=== PATIENT | female | born 1945 | race Caucasian/White ===

== ENCOUNTER 2024-08-02 12:19 | Emergency (ER) | payer MEDICARE, OTHER, SELFPAY ==
--- NOTE | 2024-08-02 12:22 | XRR_ITS ---
PROCEDURE INFORMATION: Exam: XR Chest Exam date and time: 08/02/2024 12:38 PM Age: 78 years old Clinical indication: Shortness of breath; Additional info: HTN TECHNIQUE: Imaging protocol: Radiologic exam of the chest. Views: 1 view. COMPARISON: No relevant prior studies available. FINDINGS: Lungs: Unremarkable. No consolidation. Pleural spaces: Unremarkable. No pleural effusion. No pneumothorax. Heart/Mediastinum: Heart size is normal. There is calcified plaque involving the aorta. Bones/joints: Unremarkable. XR/XR chest 1V portable [id number] IMPRESSION: 1. No acute cardiopulmonary findings.
[2024-08-02 12:26] VITALS: BP 190/83; PULSE 80; RESP 18; TEMP 36.4; O2SAT 99; BMI 29.0
[2024-08-02 13:26] LABS: Basophils # 0.1 10^3/uL (0.0-0.1); Basophils % 0.7 %; Eosinophils # 0.3 10^3/uL (0.0-0.8); Eosinophils % 3.8 %; Hematocrit 40.6 % (36-47); Lymphocytes # 2.4 10^3/uL (0.8-4.8); Lymphocytes % 32.9 %; Mean Corpuscular HGB Conc 32.8 g/dL (30-55); Mean Corpuscular Hemoglobin 30.2 pg (27-33); Mean Corpuscular Volume 92.3 fl (85-98); Mean Platelet Volume 11.1 fL (7.4-10.4); Monocytes # 0.6 10^3/uL (0.2-0.9); Monocytes % 8.3 %; Neutrophils % 54.2 %; Nucleated Red Blood Cells % 0 %; Platelet Count 206 10^3/cmm (157-399); Red Cell Distribution Width 12.6 % (12.1-15.1)
[2024-08-02 13:42] LABS: INR 0.82 (0.8-1.2)
[2024-08-02 13:48] LABS: Alanine Aminotransferase 17 U/L (0-33); Albumin Level 3.9 g/dL (3.5-5.2); Alkaline Phosphatase 129 U/L (35-105); Aspartate Amino Transferase 18 U/L (0-32); Blood Urea Nitrogen 16 mg/dL (8-23); Calcium 8.5 mg/dL (8.5-10.5); Carbon Dioxide 26 mmol/L (22-29); Chloride 105 mmol/L (98-107); Creatinine Clr Calc Pharmacy 41.0524; Globulin 2.6 g/dL (1.3-4.6); Glucose 105 mg/dL (65-115); Osmolality Calculated 292 mOsm/kg (285-295); Sodium 140 mmol/L (136-145); Total Bilirubin 0.3 mg/dL (0.15-1.2); Total Protein 6.5 g/dL (6.6-8.7)
== END 2024-08-02 14:04 | disposition left against medical advice (07) ==
PROVIDERS: Emergency Medicine; Emergency Provider Family Medicine; PCP Family Medicine
DX: Z53.21 Procedure and treatment not carried out due to patient leaving prior to being seen by health care provider (principal); R42 Dizziness and giddiness; R53.1 Weakness
CPT/HCPCS: 36415; 71045; 80053; 85025; 85610

== ENCOUNTER 2025-09-14 11:48 | Observation (INO) | payer MEDICARE, SELFPAY ==
[2025-09-14] VITALS (8 sets, daily range): BP systolic 93–197; BP diastolic 54–110; PULSE 67–96; RESP 15–22; TEMP 36.2–36.8; O2SAT 93–98
--- NOTE | 2025-09-14 11:47 | XR_ITS ---
WS: [id number] XR chest 1V portable [id number] REASON FOR EXAM: cva FINDINGS: Chest is unchanged compared to 08/02/2024. Mild tortuosity and ectasia of the thoracic aorta. Mild cardiomegaly. Calcified granulomatous disease bilaterally. No acute pulmonary parenchymal or pleural abnormality noted. XR/XR chest 1V portable [id number] IMPRESSION: Stable chest without acute abnormality.
--- NOTE | 2025-09-14 11:47 | CTR_ITS ---
PROCEDURE INFORMATION: Exam: CT Head Without Contrast Exam date and time: 09/14/2025 11:48 AM Age: 79 years old Clinical indication: Stroke-like symptoms; Other: Stroke -like symptons; Additional info: Symptoms of acute stroke TECHNIQUE: Imaging protocol: Computed tomography of the head without contrast. Radiation optimization: All CT scans at this facility use at least one of these dose optimization techniques: automated exposure control; mA and/or kV adjustment per patient size (includes targeted exams where dose is matched to clinical indication); or iterative reconstruction. Other technique: STROKE PROTOCOL was implemented. COMPARISON: No relevant prior studies available. RADIATION DOSE METRICS: Total DLP (mGy-cm): 1038.98 FINDINGS: Brain: No acute hemorrhage, edema, or mass effect. Areas of periventricular and subcortical hypoattenuation likely reflecting chronic microvascular ischemic changes given the patient's age. Age-indeterminate lacunar infarct in the right subinsular white matter. Chronic appearing left basal ganglia lacunar infarct. Cerebral ventricles: No hydrocephalus. Mild ex vacuo dilatation of the left lateral ventricle. Paranasal sinuses: Few opacified ethmoid air cells. Mild sphenoid sinus mucosal thickening. Mastoid air cells: The tympanomastoid cavities are clear. Bones: Unremarkable. No acute fracture. Soft tissues: Unremarkable. CT/CT head thrombolytic [id number] IMPRESSION: 1. No acute hemorrhage, edema, or mass effect. Extensive chronic microvascular ischemic changes. 2. No obvious transcortical infarct. 3. Age indeterminate lacunar infarct in the right subinsular white matter. 4. Chronic left basal ganglia lacunar infarct. ASSESSMENT: ASPECTS ([place] Stroke Program Early CT Score) is 10.
--- NOTE | 2025-09-14 12:03 | ED_ITS ---
HPI - Neuro Symptoms/Deficit 2 General: Chief Complaint: Neuro Symptoms/Deficit Stated Complaint: disoriented/slurred speech - resolved before ems Time Seen by Provider: 09/14/25 11:48 Source: patient and EMS Mode of arrival: EMS Limitations: no limitations History of Present Illness: 79-year-old female states that she went to bed last night 8 PM states she woke up she has been having some dizziness with some unsteady gait she had a episode here where she is having slurred speech word find difficulty that is since resolved. She denies any weakness states she just feels unsteady when she tries to ambulate. Denies any headache denies any fevers Related Data Home Medications ?Medication ?Instructions ?Recorded ?Confirmed albuterol sulfate 90 mcg/actuation 2 puff inhalation Q 6H PRN 09/14/25 09/14/25 aerosol inhaler Shortness Of Breath atorvastatin 80 mg tablet 80 mg PO DAILY 09/14/2509/04 clopidogrel 75 mg tablet 75 mg PO DAILY 09/14/2509/04 losartan 100 mg tablet 100 mg PO DAILY 09/14/2508/29 metoprolol succinate 100 mg 100 mg PO QAM 09/14/2508/29 tablet,extended release 24 hr pantoprazole 40 mg tablet,delayed 40 mg PO DAILY 09/1409/14/25 release Allergies Allergy/AdvReac Type Severity Reaction Status Date / Time lisinopril Allergy ADR-Cough Verified 08/02/24 12:28 Review of Systems 2 Neuro: Reports: dizziness NIH stroke score 2 NIHSS: Level Of Consciousness - 1a: 0 Level Of Consciousness Questions - 1b: Both Correct Level Of Consciousness Commands - 1c: Both Correct Best Gaze - 2: Normal Visual Pryor - 3: No Visual Loss Facial Palsy - 4: N ormal Motor Arm Right - 5: No Drift Motor Arm Left - 5: No Drift Motor Leg Right - 6: No Drift Motor Leg Left - 6: No Drift Limb Ataxia - 7: A bsent Sensory - 8: Normal Best Language - 9: No Aphasia Dysarthia - 10: Normal Extinction And Inattention - 11: 0 Score: Total Score: 0 Physical Exam 2 Const: COMMON NORMALS: patient oriented x3 HENMT: COMMON NORMALS: normocephalic and atraumatic HEAD & SCALP: n ormocephalic and atraumatic Eye: COMMON NORMALS: Equal, round and reactive pupils present and EOMs intact bilaterally PUPIL: Yes Equal, round and reactive pupils present Neck/C-Spine: COMMON NORMALS: full ROM and supple Chest: COMMONS NORMALS: normal inspection of the chest Resp: COMMON NORMALS: normal respiratory effort, No retractions, No use of accessory muscles and clear to auscultation bilaterally AUSCULTATION: clear to auscultation bilaterally Cardio: COMMON NORMALS: regular rate, regular rhythm and No murmurs present (Cardio) RATE: regular rate RHYTHM: regular rhythm Extremity: COMMON NORMALS: normal to inspection and full ROM Neuro: COMMON NORMALS: patient oriented x3 and moves all extremities C RANIAL NERVES: Yes CN normal except as noted SPEECH: speech normal MOTOR EXAM: 5/5 motor strength present throughout OTHER: ataxic gait Psych: COMMON NORMALS: mental status grossly normal, Normal thought process present and cooperative THOUGHT PROCESS: Normal thought process present Skin: COMMON NORMALS: no rashes or lesions noted and no wounds GENERAL SKIN EXAM: no rashes or lesions noted Course 2 Vital Signs: Vital signs: Vital Signs Temperature 98.2 F 09/14/25 12:03 Pulse Rate 76 09/14/25 12:52 Respiratory Rate 22 H 09/14/25 12:52 Blood Pressure 192/89 09/14/25 12:52 Pulse Oximetry 96 09/14/25 12:52 Oxygen Delivery Me thod Room Air 09/14/25 12:03 MDM - Neuro Symptoms/Deficit Medical Decision Making 79-year-old female presents here with vertigo along with slurred speech she woke up with symptoms last normal 8 PM last night since resolved. Differential includes TIA, CVA, subarachnoid hemorrhage. CT here shows no signs of hemorrhage patient is not a lytic candidate as her last known normal was last night and her symptoms have since resolved is likely a TIA did interpret her chest x-ray showed no acute abnormality spoke to Dr. Lala will admit for observation this time EKG interpreted by me at 1204 normal sinus rhythm heart rate [address] elevation QRS 94 QTc 399 Medical Records I reviewed the patient's medical records. Lab Data I reviewed the patient's lab results. 09/14/25 12:02 09/14/25 12:02 Radiology Impressions Chest X-Ray 09/14/25 11:47 IMPRESSION: Stable chest without acute abnormality. Head CT 09/14/25 11:47 IMPRESSION: 1. No acute hemorrhage, edema, or mass effect. Extensive chronic microvascular ischemic changes. 2. No obvious transcortical infarct. 3. Age indeterminate lacunar infarct in the right subinsular white matter. 4. Chronic left basal ganglia lacunar infarct. ASSESSMENT: ASPECTS ([place] Stroke Program Early CT Score) is 10. ADDENDUM: 09/14/25 1228 COMMENT: THIS REPORT CONTAINS FINDINGS THAT MAY BE CRITICAL TO PATIENT CARE. The exam findings were verbally communicated by me to LEIF SAMAYOA via telephone conference at 12:25 PM WORKPLACE RELATIONS ADVISER on 09/14/2025. The findings were acknowledged and understood. MRI may be obtained for further evaluation if no contraindication. Laboratory Results WBC 6.58 10^3/uL (3.29-11.43) 09/14/25 12:02 RBC 4.66 10^6/uL (3.85-5.65) 09/14/25 12:02 Hgb 14.00 g/dL (11.27-16.99) 09/14/25 12:02 Hct 42.1 % (36-47) 09/14/25 12:02 MCV 90.3 fl (85-98) 09/14/25 12:02 MCH 30.0 pg (27-33) 09/14/25 12:02 MCHC 33.3 g/dL (30-55) 09/14/25 12:02 RDW 12.7 % (12.1-15.1) 09/14/25 12:02 Plt Count 227 10^3/cmm (157-399) 09/14/25 12:02 MPV 10.6 fL (7.4-10.4) H 09/14/25 12:02 Neut % (Auto) 49.4 % 09/14/25 12:02 Lymph % (Auto) 36.0 % 09/14/25 12:02 [place] % (Auto) 8.4 % 09/14/25 12:02 Eos % (Auto) 5.2 % 09/14/25 12:02 Baso % (Auto) 0.8 % 09/14/25 12:02 Neut # (Auto) 3.26 10^3/uL (1.8-7.7) 09/14/25 12:02 Lymph # (Auto) 2.4 10^3/uL (0.8-4.8) 09/14/25 12:02 [place] # (Auto) 0.6 10^3/uL (0.2-0.9) 09/14/25 12:02 Eos # (Auto) 0.3 10^3/uL (0.0-0.8) 09/14/25 12:02 Baso # (Auto) 0.1 10^3/uL (0.0-0.1) 09/14/25 12:02 Nucleated RBC % (auto) 0 % 09/14/25 12:02 Nucleated RBCs # 0.0 /100WBC 09/14/25 12:02 PT 12.50 SECONDS (12.1-14.9) 09/14/25 12:02 INR 0.87 (0.8-1.2) 09/14/25 12:02 APTT 23.9 SECONDS (23.9-36.7) 09/14/25 12:02 Sodium 142 mmol/L (136-145) 09/14/25 12:02 Potassium 4.2 mmol/L (3.5-5.1) 09/14/25 12:02 Chloride 105 mmol/L (98-107) 09/14/25 12:02 Carbon Dioxide 26 mmol/L (22-29) 09/14/25 12:02 Anion Gap 15.2 (5-19) 09/14/25 12:02 BUN 16 mg/dL (8-23) 09/14/25 12:02 Creatinine 1.1 mg/dL (0.5-0.9) H 09/14/25 12:02 GFR Calculation Not Reportable 09/14/25 12:02 Glucose 120 mg/dL (65-115) H 09/14/25 12:02 POC Glucose 126 mg/dL (70-110) H 09/14/25 12:00 Calculated Osmolality 296 mOsm/kg (285-295) H 09/14/25 12:02 Calcium 9.3 mg/dL (8.5-10.5) 09/14/25 12:02 Total Bilirubin 0.4 mg/dL (0.15-1.2) 09/14/25 12:02 AST 19 U/L (0-32) 09/14/25 12:02 ALT 17 U/L (0-33) 09/14/25 12:02 Alkaline Phosphatase 101 U/L (35-105) 09/14/25 12:02 Total Protein 6.9 g/dL (6.6-8.7) 09/14/25 12:02 Albumin 4.3 g/dL (3.5-5.2) 09/14/25 12:02 Globulin 2.6 g/dL (1.3-4.6) 09/14/25 12:02 Urine Color Yellow (Yellow) 09/14/25 12:16 Urine Appearance Clear (CLEAR) 09/14/25 12:16 Urine pH 5.5 (5-7) 09/14/25 12:16 Ur Specific [place] 1.005 (1.005-1.030) 09/14/25 12:16 Urine Protein Negative (Negative) 09/14/25 12:16 Urine Glucose (UA) Negative (Normal) 09/14/25 12:16 Urine Ketones Negative (Negative) 09/14/25 12:16 Urine Blood Negative (Negative) 09/14/25 12:16 Urine Nitrate Negative (Negative) 09/14/25 12:16 Urine Bilirubin Negative (Negative) 09/14/25 12:16 Urine Urobilinogen 0.2 mg/dL (Negative) 09/14/25 12:16 Ur Leukocyte Esterase Negative (Negative) 09/14/25 12:16 Urine RBC 0-2 /hpf (0-2) 09/14/25 12:16 Urine WBC 0-5 /hpf (0-5) 09/14/25 12:16 Ur Squamous Epith Cells 0-5 /hpf (0-5) 09/14/25 12:16 Amorphous Sediment Not Reportable 09/14/25 12:16 Urine Bacteria None seen /hpf (NONE) 09/14/25 12:16 Hyaline Casts 0-4 /lpf H 09/14/25 12:16 Urine Opiates Screen Negative ng/mL (Negative) 09/14/25 12:16 Ur Barbiturates Screen Negative ng/mL (Negative) 09/14/25 12:16 Ur Phencyclidine Scrn Negative ng/mL (Negative) 09/14/25 12:16 Ur Amphetamines Screen Negative ng/mL (Negative) 09/14/25 12:16 U Benzodiazepines Scrn Negative ng/mL (Negative) 09/14/25 12:16 Urine Cocaine Screen Negative ng/mL (Negative) 09/14/25 12:16 U Marijuana (THC) Screen Negative ng/mL (Negative) 09/14/25 12:16 All radiology interpretation(s) finalized by discharge Discharge Plan Discharge Condition: Stable Prescriptions: No Action atorvastatin 80 mg tablet 80 mg PO DAILY metoprolol succinate 100 mg tablet extended release 24 hr 100 mg PO QAM clopidogrel 75 mg tablet 75 mg PO DAILY pantoprazole 40 mg tablet,delayed release (DR/EC) 40 mg PO DAILY albuterol sulfate 90 mcg/actuation HFA aerosol inhaler 2 puff INHALATION Q6H PRN (Reason: Shortness Of Breath) losartan 100 mg tablet 100 mg PO DAILY Referrals: Spencer Pascal MD [Staff Physician, Family Practice] Print Language: Divehi Coding Level of Care Code ED Pull Over Machine Operator for Rodriguez Valiente
--- NOTE | 2025-09-14 12:04 | ECG_ITS ---
[facility] Test Date: 2025-09-14 Pat Name: Susan Machado Department: Room: Gender: Female Air Dispatcher: : 1945 Requested By: Desirae Cueto Order Number: [id number] Hui MD: Trudy Cobos M.D. Measurements Intervals [place] Rate: 75 P: 55 IA: 194 QRS: 58 QRSD: 94 T: 69 QT: 369 QTc: 415 Interpretive Statements SINUS RHYTHM NONSPECIFIC ST & T-WAVE ABNORMALITY No previous ECG available for comparison Electronically Signed On 09-14-2025 17:17:24 VIDEO SYSTEM REPAIRER by Trudy Cobos M.D. [email or web address]
[2025-09-14 12:08] LABS: Hematocrit 42.1 % (36-47); Hemoglobin 14.00 g/dL (11.27-16.99); Mean Corpuscular HGB Conc 33.3 g/dL (30-55); Mean Corpuscular Hemoglobin 30.0 pg (27-33); Mean Corpuscular Volume 90.3 fl (85-98); Nucleated Red Blood Cells % 0 %; Platelet Count 227 10^3/cmm (157-399); Red Blood Count 4.66 10^6/uL (3.85-5.65); White Blood Count 6.58 10^3/uL (3.29-11.43)
[2025-09-14 12:25] LABS: INR 0.87 (0.8-1.2); Prothrombin Time 12.50 SECONDS (12.1-14.9)
[2025-09-14 12:26] LABS: Partial Thromboplastin Time 23.9 SECONDS (23.9-36.7)
[2025-09-14 12:32] LABS: Alanine Aminotransferase 17 U/L (0-33); Albumin Level 4.3 g/dL (3.5-5.2); Alkaline Phosphatase 101 U/L (35-105); Anion Gap 15.2 (5-19); Aspartate Amino Transferase 19 U/L (0-32); Blood Urea Nitrogen 16 mg/dL (8-23); Calcium 9.3 mg/dL (8.5-10.5); Carbon Dioxide 26 mmol/L (22-29); Chloride 105 mmol/L (98-107); Globulin 2.6 g/dL (1.3-4.6); Glucose 120 mg/dL (65-115); Osmolality Calculated 296 mOsm/kg (285-295); Potassium 4.2 mmol/L (3.5-5.1); Sodium 142 mmol/L (136-145); Total Protein 6.9 g/dL (6.6-8.7)
[2025-09-14 12:38] LABS: Glucose Urine UA Negative (Normal); Nitrate Urine Negative (Negative); Specific Gravity, Urine 1.005 (1.005-1.030)
[2025-09-14 12:43] LABS: Add Urine Microscopic? YES
[2025-09-14 12:45] LABS: PCP Screen Urine Negative (Negative)
--- NOTE | 2025-09-14 14:09 | CTR_ITS ---
PROCEDURE INFORMATION: Exam: CTA Head With Contrast, Arteriography Exam date and time: 09/14/2025 2:17 PM Age: 79 years old Clinical indication: Stroke-like symptoms; Other: TIA, CT angiogram cervical and intracranial vessels TECHNIQUE: Imaging protocol: Computed tomographic angiography of the head with contrast. Exam focused on the arteries. 3D rendering (Not supervised by radiologist): MIP and/or 3D reconstructed images were created by the technologist. Radiation optimization: All CT scans at this facility use at least one of these dose optimization techniques: automated exposure control; mA and/or kV adjustment per patient size (includes targeted exams where dose is matched to clinical indication); or iterative reconstruction. Contrast material: [id number]; Contrast volume: 100 ml; Contrast route: INTRAVENOUS (IV); COMPARISON: CT head thrombolytic [id number] 09/14/2025 11:48 AM RADIATION DOSE METRICS: Total DLP (mGy-cm): 427.55 FINDINGS: ANTERIOR CIRCULATION: Right internal carotid artery: Calcified atheroma of the right cavernous ICA with mild stenosis. Right middle cerebral artery: No occlusion or significant stenosis. No aneurysm. Right anterior cerebral artery: No occlusion or significant stenosis. No aneurysm. Left internal carotid artery: Mild stenosis of the left cavernous ICA. Left middle cerebral artery: No occlusion or significant stenosis. No aneurysm. Left anterior cerebral artery: No occlusion or significant stenosis. No aneurysm. POSTERIOR CIRCULATION: Right vertebral artery: No occlusion or significant stenosis. No aneurysm. Left vertebral artery: No occlusion or significant stenosis. No aneurysm. Basilar artery: No occlusion or significant stenosis. No aneurysm. Right posterior cerebral artery: Moderate stenosis of the right SENIOR JAVA DATA ARCHITECT. Left posterior cerebral artery: Mild stenosis of the left SENIOR JAVA DATA ARCHITECT. Brain: There are bilateral periventricular white matter and centrum semiovale hypodensities, consistent with chronic ischemic small vessel disease. Age related diffuse parenchymal volume loss. Old infarct in the left basal ganglia. No recent infarct, intracranial bleed or mass effect. Cerebral ventricles: Ex vacuo dilatation of the ventricles. Bones/joints: Unremarkable. No acute fracture. Soft tissues: Unremarkable. PROCEDURE INFORMATION: Exam: CTA Neck With Contrast Exam date and time: 09/14/2025 2:17 PM Age: 79 years old Clinical indication: Stroke-like symptoms; Other: TIA, CT angiogram cervical and intracranial vessels TECHNIQUE: Imaging protocol: Computed tomographic angiography of the neck with contrast. Exam focused on the cervical segments of the vasculature. 3D rendering (Not supervised by radiologist): MIP and/or 3D reconstructed images were created by the technologist. Radiation optimization: All CT scans at this facility use at least one of these dose optimization techniques: automated exposure control; mA and/or kV adjustment per patient size (includes targeted exams where dose is matched to clinical indication); or iterative reconstruction. Contrast material: [id number]; Contrast volume: 100 ml; Contrast route: INTRAVENOUS (IV); COMPARISON: CT head thrombolytic [id number] 09/14/2025 11:48 AM RADIATION DOSE METRICS: Total DLP (mGy-cm): 427.55 FINDINGS: Right common carotid artery: Calcified atheroma of the right common carotid artery with mild stenosis. Right internal carotid artery: Work calcified atheroma of the right proximal ICA with moderate to severe stenosis. Right external carotid artery: No occlusion or stenosis of the origin. Left common carotid artery: Calcified atheroma of the left common carotid artery with mild stenosis. Left internal carotid artery: Calcified atheroma of the left proximal ICA with moderate to severe stenosis. Left external carotid artery: No occlusion or stenosis of the origin. Right vertebral artery: Hypoplastic right vertebral artery. Left vertebral artery: Calcified atheromas at the origin of the left vertebral artery with mild stenosis. Thyroid: Heterogeneous thyroid with multiple thyroid nodules, some of which with calcifications measuring up to 2 cm in the left thyroid lobe. Soft tissues: Normal. No significant soft tissue swelling. Bones/joints: The cervical spine demonstrates moderate degenerative changes at multiple levels. Mild anterolisthesis of C6 over C7. There is a curvature of the cervical spine convex to the right. CT/CT angio headneck* [id number] IMPRESSION: 1. No large territorial infarct or intracranial bleed. 2. No large vessel occlusion. IMPRESSION: Moderate to severe stenosis of bilateral proximal ICAs. COMMENTS: Consistent with the [place] [employer]'s Incidental Findings Committee white paper (J Am Saji Radiol 2015): In patients aged 35 years and older with an incidental thyroid nodule equal to or greater than 1.[address], MRI or extrathyroidal US, further evaluation with dedicated thyroid US is recommended for patients with normal life expectancy and without comorbidities. For smaller nodules without suspicious features, no further evaluation or follow up is recommended. REFERENCES: NASCET CRITERIA. The degree of stenosis in the cervical segment of the internal carotid artery is based on NASCET criteria. Normal is no stenosis. Mild is less than 50% stenosis. Moderate is 50-69% stenosis. Severe is 70% to 99% stenosis. Total occlusion is no detectable patent lumen.
--- NOTE | 2025-09-14 14:10 | PM.HP ---
Providers/Chief Complaint Admitting Physician: Jorge Luis Funes MD Primary Care Provider: Maricel Leonardo DO Chief Complaint: disoriented - slurred speech History of Present Illness Susan Machado is a 79 year old female with past medical history of hypertension, CAD post PCI, hyperlipidemia presents to the ER today because of slurred speech, dizziness which started at 10:50 AM and lasted for around 15 minutes. Symptoms resolved by itself. Patient denies having any similar symptoms in the past. Denies any changes in the medications. States she usually checks her blood pressures at home and usually numbers are in 120s systolics. Review of Systems General: Reports: 10 or more systems reviewed and unremarkable except in HPI and below Const: Denies: fever(s), chills, body aches, change in appetite, change in weight, malaise, night sweats, diaphoresis, change in sleep pattern, daytime sleepiness or snoring Eyes: Denies: change in vision, blurry vision, photophobia, eye discomfort or eye discharge ENMT: Denies: throat pain, enlarged tonsils, hoarseness, mouth pain, oral sores, dry mouth, tinnitus, nasal congestion or post nasal drip Card: Denies: chest pain, palpitations, irregular heart rhythm, edema, swelling of feet/ankles, lightheadedness, syncope, pre-syncope, dyspnea on exertion, orthopnea, leg pain with exertion or acrocyanosis Resp: Denies: dyspnea, productive cough, non-productive cough, wheezing, stridor, pain on inspiration, change in phlegm color, hemoptysis or chest congestion GI: Denies: abdominal pain, nausea, vomiting, hematemesis, coffee ground emesis, dysphagia, heartburn, diarrhea, constipation, bloating, GI cramping, change in bowel habits, pain on defecation, hematochezia or melena : Denies: flank pain, dysuria, urinary frequency, urinary urgency, urinary hesitancy, nocturia or hematuria Musc: Denies: neck pain, back pain, extremity pain, joint pain, joint swelling, joint redness, joint stiffness or limited range of motion Neuro: Denies: headache(s), numbness in extremities, weakness in extremities, sensory changes, lack of coordination, difficulty walking, frequent falls, dizziness, vertigo, confusion, Slurred speech present, difficulty communicating thoughts or seizure-like activity Psych: Denies: anxiety, depression, mood swings, panic attacks, hopelessness or irritability Endo: Denies: polyuria, polydipsia, tired all the time, cold intolerance, excessive sweating, flushing or heat intolerance Justin/Lymph: Denies: easy bruising or easy bleeding All/Imm: Denies: tongue swelling, facial swelling or acute wheezing Medications/Allergies Home Medications ?Medication ?Instructions ?Recorded ?Confirmed ?Last Taken ?Type albuterol sulfate 90 mcg/actuation 2 puff inhalation Q6H PRN 09/14/25 09/14/25 Unknown History aerosol inhaler Shortness Of Breath atorvastatin 80 mg tablet 80 mg PO DAILY 09/14/25 09/14/25 09/13/25 History clopidogrel 75 mg tablet 75 mg PO DAILY 09/14/25 09/14/25 09/13/25 History losartan 100 mg tablet 100 mg PO DAILY 09/14/25 09/14/25 09/14/25 History metoprolol succinate 100 mg 100 mg PO QAM 09/14/25 09/14/25 09/13/25 History tablet,extended release 24 hr pantoprazole 40 mg tablet,delayed 40 mg PO DAILY 09/14/25 09/14/25 09/13/25 History release Allergies Allergy/AdvReac Type Severity Reaction Status Date / Time lisinopril Allergy ADR-Cough Verified 08/02/24 12:28 PFSH Acute PFSH: Medical History (Updated 09/14/25 @ 15:27 by Jorge Luis Funes MD) Staphylococcus aureus bacteremia CKD (chronic kidney disease) Hyperlipidemia Hypertension CAD (coronary artery disease) Surgical History (Updated 09/14/25 @ 15:27 by Jorge Luis Funes MD) Status post right knee replacement Previous back surgery Hx of cholecystectomy Social History (Updated 09/14/25 @ 16:19 by Jorge Luis Funes MD) Smoking and tobacco/nicotine status: current every day tobacco/nicotine user cigarettes Packs smoked per day: 0.5 Alcohol intake: never Substance/Drug Use: never Caregiver/support person: Yes Lives independently: Yes Household members: family Vitals/I&O/Wt Last Vital Signs Temp 98.2 F 09/14/25 12:03 Pulse 67 09/14/25 14:02 Resp 15 09/14/25 14:02 BP 172/83 09/14/25 14:02 Pulse Ox 95 09/14/25 14:02 O2 Del Method Room Air 09/14/25 14:02 09/13/25 09/14/25 09/14/25 22:59 06:59 14:59 Intake Total 1000 / 1000 Balance 1000 / 1000 Weight last 48 hrs Weight 64.864 kg Physical Exam Narrative: General: No acute distress, AO x3 HEENT: PERRLA, pupils bilaterally equal and reactive Chest: Normal vesicular breath sounds, no added sounds, equal good air entry bilaterally CVS: S1-S2 regular, no murmurs, no tachycardia, no gallops, no rubs Abdomen: Soft, nontender, no organomegaly, bowel sounds present Neuro: No focal deficits, no facial deformity, AO x3, power 5/5 in all limbs Data 09/14/25 12:02 09/14/25 12:02 A&P Assessment and plan 1. TIA (transient ischemic attack): 2. Bilateral carotid artery stenosis: 3. Hyperlipidemia: 4. Hypertension: 5. CAD (coronary artery disease): Plan: 79-year-old lady admitted with TIA. History of CAD and hypertension along with hyperlipidemia. TIA: Neurochecks every 4 hour. Continue with home dose of Plavix and statin. Add aspirin 81 mg oral daily. Check CTA, echocardiogram, TSH, lipid panel, A1c. Hypertension: Goal blood pressure less than 140/90 mmHg. Continue with home dose of losartan and metoprolol for now. Uptitrate as for goal blood pressure. CKD: Baseline creatinine around 1-1.1. Currently creatinine at baseline. Continue to monitor daily for now. CODE STATUS: Discussed detail with the patient. Daughter Judith will be DPOA. Glucoside resuscitation. Okay with chest compressions but no mechanical ventilation. Lovenox for DVT prophylaxis Protonix for PUD prophylaxis PDMP PDMP Reviewed: Not Reviewed Attestations Medical Necessity Statement*: Under observation for management of TIA. Diagnoses TIA (transient ischemic attack) G45.9 Bilateral carotid artery stenosis I65.23 Hyperlipidemia E78.5 Hypertension I10 CAD (coronary artery disease) I25.10
[2025-09-14] MEDS: iohexol 350 mg/mL 500 mL Btl (per mL) IV (14:21)
--- NOTE | 2025-09-14 14:31 | USCV_ITS ---
Susan Machado Age: 79 Gender: F : 1945 Exam Date: 09/14/2025 19:43 Ordering Phys: Jorge Luis Funes MD Technologist: RASTA [place]am Location[place] [facility] [place]: acute stroke, History of HTN, CAD s/p PCI BP: 197 / 96 HR: 66 Rhythm: Sinus Technical Quality: Adequate MEASUREMENTS (Male / Female) Normal Values 2D ECHO LV Diastolic Diameter PLAX 4.3 cm 4.2 - 5.9 / 3.9 - 5.3 cm IVS Diastolic Thickness 1.2 cm 0.6 - 1.0 / 0.6 - 0.9 cm IVS Systolic Thickness 1.8 cm LVPW Diastolic Thickness 1.1 cm 0.6 - 1.0 / 0.6 - 0.9 cm LVPW Systolic Thickness 1.5 cm LVOT Diameter 1.6 cm LV Ejection Fraction 2D Teich 50.0 % LV Ejection Fraction MOD 4C 50.8 % LV Ejection Fraction MOD 2C 53.5 % LV Ejection Fraction 2C AL 54.0 % LA Diameter 3.5 cm Aorta at Sinotubular Diameter 2.3 cm IVC Diameter 1.1 cm M-MODE LA Ao Ratio MM 1.6 AV Cusp Separation MM 1.6 cm DOPPLER AV Peak Velocity 119.0 cm/s LVOT Peak Velocity 79.0 cm/s AV Area Cont Eq vti 1.5 cm squared AV Area Cont Eq pk 1.4 cm squared MV Peak Velocity 117.0 cm/s MV Area PHT 2.6 cm squared Mitral E to A Ratio 0.7 TV Peak E Velocity 46.0 cm/s PV Peak Velocity 73.0 cm/s FINDINGS Left Ventricle Normal left ventricular size, systolic function and wall thickness, with no regional wall motion abnormalities. Left ventricular ejection fraction is estimated at 60 %. Grade I/IV diastolic dysfunction (abnormal relaxation filling pattern), normal to mildly elevated filling pressures. Right Ventricle Normal right ventricular size and systolic function. Right Atrium Normal right atrial size. Left Atrium Moderately increased left atrial size. IA Septum Normal appearance of the interatrial septum. Mitral Valve Severely thickened mitral valve. Moderate mitral annular calcification. No mitral valve stenosis. Mild mitral valve regurgitation. Aortic Valve Moderate aortic valve calcification. No aortic valve stenosis. Trace aortic valve regurgitation. Tricuspid Valve Mild tricuspid valve regurgitation. Pulmonic Valve Mild pulmonary valve regurgitation. Pericardium No pericardial effusion. Aorta Normal diameter of the aortic root and ascending thoracic aorta. IVC Normal IVC diameter. CONCLUSIONS Normal left ventricular size, systolic function and wall thickness, with no regional wall motion abnormalities. Left ventricular ejection fraction is estimated at 60 %. Grade I/IV diastolic dysfunction (abnormal relaxation filling pattern), normal to mildly elevated filling pressures. Severely thickened mitral valve. Moderate mitral annular calcification. No mitral valve stenosis. Mild mitral valve regurgitation. Moderate aortic valve calcification. No aortic valve stenosis. Trace aortic valve regurgitation. Mild tricuspid valve regurgitation. There is no pericardial effusion. Right atrial pressure is around 5 mm of mercury. Clara Finney MD (Electronically Signed) Final Date: 17 September 2025 15:27 S
[2025-09-14 14:39] LABS: Alcohol Level < 10 mg/dL (0-10)
[2025-09-14 15:33] LABS: Thyroid Stimulating Hormone 2.05 uIU/mL (0.27-4.20); Vitamin B12 398 pg/mL (232-1245)
[2025-09-15] VITALS: BP 93/54; PULSE 67; RESP 16; TEMP 36.2; O2SAT 96
[2025-09-15 03:41] VITALS: TEMP 36.2
[2025-09-15 04:00] VITALS: BP 104/62; PULSE 61; RESP 16; TEMP 36.7; O2SAT 91
[2025-09-15 05:16] LABS: Hematocrit 40.2 % (36-47); Hemoglobin 13.10 g/dL (11.27-16.99); Mean Corpuscular HGB Conc 32.6 g/dL (30-55); Mean Corpuscular Hemoglobin 30.1 pg (27-33); Mean Corpuscular Volume 92.4 fl (85-98); Nucleated Red Blood Cells % 0 %; Platelet Count 202 10^3/cmm (157-399); Red Blood Count 4.35 10^6/uL (3.85-5.65); White Blood Count 6.51 10^3/uL (3.29-11.43)
[2025-09-15 05:43] LABS: Alanine Aminotransferase 15 U/L (0-33); Albumin Level 3.8 g/dL (3.5-5.2); Alkaline Phosphatase 90 U/L (35-105); Anion Gap 14.1 (5-19); Aspartate Amino Transferase 16 U/L (0-32); Blood Urea Nitrogen 16 mg/dL (8-23); Calcium 9.3 mg/dL (8.5-10.5); Carbon Dioxide 25 mmol/L (22-29); Chloride 107 mmol/L (98-107); Globulin 1.9 g/dL (1.3-4.6); Glucose 98 mg/dL (65-115); Magnesium 2.3 mg/dL (1.7-2.3); Osmolality Calculated 295 mOsm/kg (285-295); Potassium 4.1 mmol/L (3.5-5.1); Sodium 142 mmol/L (136-145); Total Protein 5.7 g/dL (6.6-8.7)
[2025-09-15 05:45] LABS: Cholesterol 232 mg/dL (0-200); HDL Cholesterol 49 mg/dL (60-100); Triglycerides 130 mg/dL (0-150)
[2025-09-15] MEDS: LOSARTAN 100 MG TABLET PO (05:56)
[2025-09-15] MEDS: metoprolol succinate ER (24 HR) 100 mg Tablet PO (05:56)
[2025-09-15 06:00] VITALS: BP 104/62; PULSE 61; RESP 16; TEMP 36.7
[2025-09-15 06:00] LABS: Estmated Average Glucose 111; Hemoglobin A1C 5.5 % (4.0-6.0)
[2025-09-15 07:23] VITALS: BP 163/78; PULSE 60; RESP 16; TEMP 36.6; O2SAT 96
--- NOTE | 2025-09-15 08:29 | P.DS_ITS ---
Discharge Providers Date of Admission: 09/14/25 13:57 Date of Discharge: September 15, 2025 Attending Provider at Admission: Jorge Luis Funes MD Attending Provider at Discharge: Jorge Luis Funes MD Primary Care Provider: Maricel Leonardo DO Diagnoses at Discharge Discharge Diagnosis 1. TIA (transient ischemic attack): 2. Bilateral carotid artery stenosis: 3. Hyperlipidemia: 4. Hypertension: 5. CAD (coronary artery disease): Reason for Visit Reason for Visit: disoriented - slurred speech Hospital Course Hospital Course Susan Machado is a 79 year old female with past medical history of hypertension, CAD post PCI, hyperlipidemia presents to the ER today because of slurred speech, dizziness which started at 10:50 AM and lasted for around 15 minutes. Symptoms resolved by itself. Patient denies having any similar symptoms in the past. Denies any changes in the medications. States she usually checks her blood pressures at home and usually numbers are in 120s systolics. Patient was admitted for TIA-like symptoms. She did not have any further episodes of weakness or TIA during hospitalization. Her blood pressures remain slightly elevated. CTA was done which is concerning for bilateral moderate to severe carotid artery stenosis. She has been discharged in neurology continue the next 2 weeks. She should also follow-up with vascular team patient at the earliest patient was counseled in detail about need for smoking cessation given concern history of CAD PAD and TIA. She is to take her home dose of amlodipine and losartan as before. She is to check her blood pressure daily at home maintain blood pressure diary. She is advised to take an extra dose of amlodipine 5 mg as needed for systolic of more than 160 mmHg. Physical Exam Narrative: General: No acute distress, AO x3 HEENT: PERRLA, pupils bilaterally equal and reactive Chest: Normal vesicular breath sounds, no added sounds, equal good air entry bilaterally CVS: S1-S2 regular, no murmurs, no tachycardia, no gallops, no rubs Abdomen: Soft, nontender, no organomegaly, bowel sounds present Neuro: No focal deficits, no facial deformity, AO x3, power 5/5 in all limbs Discharge Data Studies Completed and Pending Completed Studies During Hospitalization Category Date Time Status CT angio headneck* [id number] Stat Cat Scan 09/14/25 14:[address] head thrombolytic [id number] Stat Cat Scan 09/14/25 11:47 Completed XR chest 1V portable [id number] Stat Exams 09/14/25 11:47 Completed Pending at discharge Category Date Time Status Complete Blood Count w/Auto AM LABS Lab 09/16/25 04:00 Ordered Complete Blood Count w/Auto AM LABS Lab 09/17/25 04:00 Ordered Comprehensive Metabolic Panel AM LABS Lab 09/16/25 04:00 Ordered Comprehensive Metabolic Panel AM LABS Lab 09/17/25 04:00 Ordered Magnesium AM LABS Lab 09/16/25 04:00 Ordered Magnesium AM LABS Lab 09/17/25 04:00 Ordered Phosphorus AM LABS Lab 09/16/25 04:00 Ordered Phosphorus AM LABS Lab 09/17/25 04:00 Ordered CV. echo complete* [id number] Routine Ultrasound 09/14/25 14:31 Taken Radiology Impressions Chest X-Ray 09/14/25 11:47 IMPRESSION: Stable chest without acute abnormality. Head CT 09/14/25 11:47 IMPRESSION: 1. No acute hemorrhage, edema, or mass effect. Extensive chronic microvascular ischemic changes. 2. No obvious transcortical infarct. 3. Age indeterminate lacunar infarct in the right subinsular white matter. 4. Chronic left basal ganglia lacunar infarct. ASSESSMENT: ASPECTS ([place] Stroke Program Early CT Score) is 10. ADDENDUM: 09/14/25 1228 COMMENT: THIS REPORT CONTAINS FINDINGS THAT MAY BE CRITICAL TO PATIENT CARE. The exam findings were verbally communicated by me to LEIF SAMAYOA via telephone conference at 12:25 PM SR TECHNICAL SALES CONSULTANT on 09/14/2025. The findings were acknowledged and understood. MRI may be obtained for further evaluation if no contraindication. Head/Neck CTA 09/14/25 14:09 IMPRESSION: 1. No large territorial infarct or intracranial bleed. 2. No large vessel occlusion. IMPRESSION: Moderate to severe stenosis of bilateral proximal ICAs. COMMENTS: Consistent with the [place] [employer]'s Incidental Findings Committee white paper (J Am Saji Radiol 2015): In patients aged 35 years and older with an incidental thyroid nodule equal to or greater than 1.[address], MRI or extrathyroidal US, further evaluation with dedicated thyroid US is recommended for patients with normal life expectancy and without comorbidities. For smaller nodules without suspicious features, no further evaluation or follow up is recommended. REFERENCES: NASCET CRITERIA. The degree of stenosis in the cervical segment of the internal carotid artery is based on NASCET criteria. Normal is no stenosis. Mild is less than 50% stenosis. Moderate is 50-69% stenosis. Severe is 70% to 99% stenosis. Total occlusion is no detectable patent lumen. ADDENDUM: 09/14/25 1519 ADDENDUM: THIS REPORT CONTAINS FINDINGS THAT MAY BE CRITICAL TO PATIENT CARE. The findings were verbally communicated via telephone conference with ARTURO PHOENIX at 3:16 PM SR TECHNICAL SALES CONSULTANT on 09/14/2025. The findings were acknowledged and understood. Laboratory Results WBC 6.51 10^3/uL (3.29-11.43) 09/15/25 05:03 RBC 4.35 10^6/uL (3.85-5.65) 09/15/25 05:03 Hgb 13.10 g/dL (11.27-16.99) 09/15/25 05:03 Hct 40.2 % (36-47) 09/15/25 05:03 MCV 92.4 fl (85-98) 09/15/25 05:03 MCH 30.1 pg (27-33) 09/15/25 05:03 MCHC 32.6 g/dL (30-55) 09/15/25 05:03 RDW 12.7 % (12.1-15.1) 09/15/25 05:03 Plt Count 202 10^3/cmm (157-399) 09/15/25 05:03 MPV 11.0 fL (7.4-10.4) H 09/15/25 05:03 Neut % (Auto) 49.1 % 09/15/25 05:03 Lymph % (Auto) 35.9 % 09/15/25 05:03 [place] % (Auto) 9.2 % 09/15/25 05:03 Eos % (Auto) 4.8 % 09/15/25 05:03 Baso % (Auto) 0.8 % 09/15/25 05:03 Neut # (Auto) 3.20 10^3/uL (1.8-7.7) 09/15/25 05:03 Lymph # (Auto) 2.3 10^3/uL (0.8-4.8) 09/15/25 05:03 [place] # (Auto) 0.6 10^3/uL (0.2-0.9) 09/15/25 05:03 Eos # (Auto) 0.3 10^3/uL (0.0-0.8) 09/15/25 05:03 Baso # (Auto) 0.1 10^3/uL (0.0-0.1) 09/15/25 05:03 Nucleated RBC % (auto) 0 % 09/15/25 05:03 Nucleated RBCs # 0.0 /100WBC 09/15/25 05:03 PT 12.50 SECONDS (12.1-14.9) 09/14/25 12:02 INR 0.87 (0.8-1.2) 09/14/25 12:02 APTT 23.9 SECONDS (23.9-36.7) 09/14/25 12:02 Sodium 142 mmol/L (136-145) 09/15/25 05:03 Potassium 4.1 mmol/L (3.5-5.1) 09/15/25 05:03 Chloride 107 mmol/L (98-107) 09/15/25 05:03 Carbon Dioxide 25 mmol/L (22-29) 09/15/25 05:03 Anion Gap 14.1 (5-19) 09/15/25 05:03 BUN 16 mg/dL (8-23) 09/15/25 05:03 Creatinine 0.9 mg/dL (0.5-0.9) 09/15/25 05:03 GFR Calculation Not Reportable 09/15/25 05:03 Glucose 98 mg/dL (65-115) 09/15/25 05:03 POC Glucose 126 mg/dL (70-110) H 09/14/25 12:00 Estimat Average Glucose 111 09/15/25 05:03 Hemoglobin A1c 5.5 % (4.0-6.0) 09/15/25 05:03 Calculated Osmolality 295 mOsm/kg (285-295) 09/15/25 05:03 Calcium 9.3 mg/dL (8.5-10.5) 09/15/25 05:03 Phosphorus 5.0 mg/dL (2.5-4.5) H 09/15/25 05:03 Magnesium 2.3 mg/dL (1.7-2.3) 09/15/25 05:03 Total Bilirubin 0.4 mg/dL (0.15-1.2) 09/15/25 05:03 AST 16 U/L (0-32) 09/15/25 05:03 ALT 15 U/L (0-33) 09/15/25 05:03 Alkaline Phosphatase 90 U/L (35-105) 09/15/25 05:03 Total Protein 5.7 g/dL (6.6-8.7) L 09/15/25 05:03 Albumin 3.8 g/dL (3.5-5.2) 09/15/25 05:03 Globulin 1.9 g/dL (1.3-4.6) 09/15/25 05:03 Triglycerides 130 mg/dL (0-150) 09/15/25 05:03 Cholesterol 232 mg/dL (0-200) H 09/15/25 05:03 LDL Cholesterol, Calc 157 mg/dL (50-129) H 09/15/25 05:03 HDL Cholesterol 49 mg/dL (60-100) L 09/15/25 05:03 LDL/HDL Ratio 3.20 RATIO (0.00-3.22) 09/15/25 05:03 Cholesterol/HDL Ratio 4.73 mg/dL (0.0-4.40) H 09/15/25 05:03 Vitamin B12 398 pg/mL (232-1245) 09/14/25 12:02 Folate 15.5 ng/mL (4.8-37.3) 09/15/25 05:03 TSH 2.05 uIU/mL (0.27-4.20) 09/14/25 12:02 Urine Color Yellow (Yellow) 09/14/25 12:16 Urine Appearance Clear (CLEAR) 09/14/25 12:16 Urine pH 5.5 (5-7) 09/14/25 12:16 Ur Specific [place] 1.005 (1.005-1.030) 09/14/25 12:16 Urine Protein Negative (Negative) 09/14/25 12:16 Urine Glucose (UA) Negative (Normal) 09/14/25 12:16 Urine Ketones Negative (Negative) 09/14/25 12:16 Urine Blood Negative (Negative) 09/14/25 12:16 Urine Nitrate Negative (Negative) 09/14/25 12:16 Urine Bilirubin Negative (Negative) 09/14/25 12:16 Urine Urobilinogen 0.2 mg/dL (Negative) 09/14/25 12:16 Ur Leukocyte Esterase Negative (Negative) 09/14/25 12:16 Urine RBC 0-2 /hpf (0-2) 09/14/25 12:16 Urine WBC 0-5 /hpf (0-5) 09/14/25 12:16 Ur Squamous Epith Cells 0-5 /hpf (0-5) 09/14/25 12:16 Amorphous Sediment Not Reportable 09/14/25 12:16 Urine Bacteria None seen /hpf (NONE) 09/14/25 12:16 Hyaline Casts 0-4 /lpf H 09/14/25 12:16 Urine Opiates Screen Negative ng/mL (Negative) 09/14/25 12:16 Ur Barbiturates Screen Negative ng/mL (Negative) 09/14/25 12:16 Ur Phencyclidine Scrn Negative ng/mL (Negative) 09/14/25 12:16 Ur Amphetamines Screen Negative ng/mL (Negative) 09/14/25 12:16 U Benzodiazepines Scrn Negative ng/mL (Negative) 09/14/25 12:16 Urine Cocaine Screen Negative ng/mL (Negative) 09/14/25 12:16 U Marijuana (THC) Screen Negative ng/mL (Negative) 09/14/25 12:16 Ethyl Alcohol < 10 mg/dL (0-10) 09/14/25 12:02 Vitals Last Vital Signs Temp 97.9 F 09/15/25 07:23 Pulse 60 09/15/25 07:23 Resp 16 09/15/25 07:23 BP 163/78 09/15/25 07:23 Pulse Ox 96 09/15/25 07:23 O2 Del Method Room Air 09/15/25 07:23 Discharge Plan Discharge Patient Disposition: Home Condition: Stable Prescriptions: New aspirin 81 mg Tablet,Delayed Release (Dr/Ec) 81 mg PO DAILY Qty: 21 0RF amlodipine 5 mg tablet 5 mg PO DAILY PRN (Reason: SBP more than 160 mmhg) Qty: 14 0RF Continued atorvastatin 80 mg tablet 80 mg PO DAILY metoprolol succinate 100 mg tablet extended release 24 hr 100 mg PO QAM clopidogrel 75 mg tablet 75 mg PO DAILY pantoprazole 40 mg tablet,delayed release (DR/EC) 40 mg PO DAILY albuterol sulfate 90 mcg/actuation HFA aerosol inhaler 2 puff INHALATION Q6H PRN (Reason: Shortness Of Breath) losartan 100 mg tablet 100 mg PO DAILY Discharge Order = DC NOW: Discharge Order (Routine); Ordered 09/15/25 Ordered By: Jorge Luis Funes Referrals: [facility] [Outside] - 2 weeks Kecia Engle MD [Physician, Neurology] - 2 weeks Referral Note: We have notified your physician's clinic of the need for a follow-up appointment to be scheduled. If you have not heard from them within the next 2 business days, please call them directly. Maricel Leonardo DO [Primary Care Provider, Family Practice] - 2 weeks Referral Note: Please call or use your [employer] malia to make a hospital discharge follow up appointment. Discharge Diet: Cardiac Discharge Activity: Resume usual activity and Increase activity as tolerated Patient Instructions: Aspirin (By mouth), Amlodipine (By mouth), Opioid Safety, Stroke Stoplight, Patient Portal & Malia Instructions Activity Restrictions/Additional Instructions: Continue taking your Plavix as before. Take aspirin 81 mg daily for next 21 days. Check your blood pressure daily at home maintain blood pressure diary. Goal blood pressures less than 140/90 mmHg. Continue taking your metoprolol and losartan as before. If your systolic blood pressures are more than 160 you can take amlodipine 5 mg as needed. Follow-up with your primary care provider, neurology team in 2 weeks. Referral has been given to you for vascular surgery at [facility]. Please follow-up with the vascular surgery at the earliest for carotid artery stenosis Discharge Attestations Time Spent in Discharge Care*: greater than 30 min Specific Discharge Activities: educating patient, educating and/or supporting family/caregiver, discussing with pcp/other providers, discussing with leather case finisher/social workers/dc planners, documenting/other paperwork and evaluating patient/reviewing data Status at Discharge: Cognitive status at discharge: cognitively intact , Behavioral status at discharge: cooperative , Functional status at discharge: independent ambulation , Overall status at discharge: patient is progressing back to baseline Quality Metrics Clinical Quality Measures [ No reported AMI, CVA or VTE this stay] Coding Level of Care Code 96783 Total time (in minutes) for Discharge: 65 Diagnoses TIA (transient ischemic attack) G45.9 Bilateral carotid artery stenosis I65.23 Hyperlipidemia E78.5 Hypertension I10 CAD (coronary artery disease) I25.10
[2025-09-15 09:52] VITALS: BP 163/78; PULSE 60; RESP 16; TEMP 36.6; O2SAT 96
== END 2025-09-15 09:52 | disposition home or self-care (01) ==
LOC: ER 12:39 → MEDSURG 13:58
PROVIDERS: Admitting Provider Student in an Organized Health Care Education/Training Program; Emergency Provider Emergency Medicine; PCP Family Medicine; Visit Provider Student in an Organized Health Care Education/Training Program
DX: G45.9 Transient cerebral ischemic attack, unspecified (principal); E78.5 Hyperlipidemia, unspecified; I25.10 Atherosclerotic heart disease of native coronary artery without angina pectoris; K21.9 Gastro-esophageal reflux disease without esophagitis; Z79.02 Long term (current) use of antithrombotics/antiplatelets; I12.9 Hypertensive chronic kidney disease with stage 1 through stage 4 chronic kidney disease, or unspecified chronic kidney disease; N18.9 Chronic kidney disease, unspecified; F17.210 Nicotine dependence, cigarettes, uncomplicated
CPT/HCPCS: 36415; 36416; 70450; 70496; 70498; 71045; 80053; 80061; 80306; 80307; 81001; 82607; 82746; 82962; 83036; 83735; 84100; 84443; 85025; 85610; 85730; 92523; 93005; 93306; 94664; 99285; G0378; J7030; J8597; J9999